=== PATIENT | male | born 1930 | race Hispanic/Latino ===

== ENCOUNTER 2019-05-17 09:59 | Inpatient (IN) | payer MEDICARE ==
[~2019-05-17] VITALS: Ht 175.3 cm; Wt 83.5 kg
[~2019-05-17 09:59] MED LIST: ASPIRIN81 MG PO; CLOPIDOGREL75 MG PO; ISOSORBIDE MONO30 MG PO; METOPROLOL SUCC25 MG PO; SODIUM BICARBO650 MG PO
[2019-05-17] MEDS ORDERED: SODIUM CHLORIDE 0.9% 1000ML 1,000 ML IV STA (12:01)
[2019-05-17] MEDS ORDERED: MORPHINE SULFATE INJ 4 MG/ML INJ 1ML IV ONE (12:01)
[2019-05-17] MEDS ORDERED: ONDANSETRON HCL INJ 2MG/ML 2ML 2 MG/ML VIAL IV ONE (12:01)
[2019-05-17 12:29] LABS: BILIRUBIN,URINE NEGATIVE (NEGATIVE); CLARITY,URINE CLEAR (CLEAR); COLOR,URINE YELLOW (YELLOW); KETONES,URINE NEGATIVE (NEGATIVE); LEUKOCYTE ESTERASE ,URINE NEGATIVE (NEGATIVE); NITRITE,URINE NEGATIVE (NEGATIVE); PROTEIN,URINE DIPSTICK NEGATIVE (NEGATIVE); URINE UROBILINOGEN 0.2 mg/dL (0.2 - 1)
[2019-05-17 12:31] LABS: BASOPHILS % 0.2 % (0.0-1.0); EOSINOPHILS % 0.1 % (0.0-6.0); HEMATOCRIT 42.5 % (38.2-49.6); HEMOGLOBIN 13.3 g/dL (14.0-18.0); LYMPHOCYTES # (AUTO) 1.8 (1.0-3.2); LYMPHOCYTES % 9.9 % (18.0-39.1); MEAN CORPUSCULAR HEMOGLOBIN 29.3 pg (28-32); MEAN CORPUSCULAR HGB CONC 31.3 g/dL (31-35); MEAN CORPUSCULAR VOLUME 93.6 fL (81-99); MONOCYTES # (AUTO) 1.3 (0.2-0.8); MONOCYTES % 6.9 % (4.4-11.3); NEUTROPHILS # (AUTO) 15.3 (2.1-6.9); NEUTROPHILS % 82.3 % (38.7-80.0); PLATELET COUNT 145 x10e3/uL (140-360); RED BLOOD COUNT 4.54 x10e6/uL (4.3-5.7); RED CELL DISTRIBUTION WIDTH 14.4 % (11.7-14.4)
[2019-05-17 12:34] LABS: INR 1.05; PROTHROMBIN TIME 14.2 seconds (11.9-14.5)
[2019-05-17 12:35] LABS: PARTIAL THROMBOPLASTIN TIME 28.6 seconds (23.8-35.5)
[2019-05-17 12:42] LABS: ALBUMIN 3.7 g/dL (3.5-5.0); ALBUMIN/GLOBULIN RATIO 1.1 (0.8-2.0); ANION GAP 14.3 mmol/L (8-16); CALCIUM 9.4 mg/dL (8.4-10.2); CREATINE KINASE MB 2.6 ng/mL (0-5.0); CREATININE, SERUM 1.84 mg/dL (0.72-1.25); POTASSIUM 5.3 mmol/L (3.5-5.1)
--- NOTE | 2019-05-17 13:10 | Diagnostic Imaging Report ---
EXAMINATION: CHEST SINGLE (PORTABLE) INDICATION: Chest pain COMPARISON: None FINDINGS: LINES/TUBES:Sternotomy wires intact. LUNGS:The lungs are moderately inflated. There is patchy airspace opacity at the lingula which partially obscures the left heart border. PLEURA:No pleural effusion or pneumothorax. MEDIASTINUM:The cardiomediastinal silhouette is mildly enlarged. Postoperative findings of prior CABG. BONES/SOFT TISSUES:Severe degenerative changes of the right glenohumeral joint. Elevation of both right and left humeral heads to just of a chronic rotator cuff injury. ABDOMEN:No free air under the diaphragm. IMPRESSION: Patchy lingular airspace opacity may represent aspiration or pneumonia in the proper clinical setting. Cardiomegaly. RECOMMENDATIONS: Follow-up chest radiograph in 6-8 weeks to assess for resolution. Signed by: Nigel Recinos MD on 05/17/2019 1:06 PM
[2019-05-17 13:31] LABS: BACTERIA,URINE RARE /HPF; EPITHELIAL CELLS,URINE FEW /LPF; RBC,URINE 0-5 /HPF (0-5); WBC,URINE (MAN) 0-5 /HPF (0-5)
[2019-05-17] MEDS: PIPERACILLIN/TAZO 2.25 GM 50 ML IV SCH ×2 (14:00→21:25)
--- OUTSIDE RECORDS SUMMARY | 2019-05-17 14:26 | XMS REPORT ---
Author [facility] Address Unknown Phone Unavailable Care Team Providers Care Kennel Helper Name Role Phone Parker PLASCENCIA Unavailable Unavailable Problems This patient has no known problems. Allergies, Adverse Reactions, Alerts This patient has no known allergies or adverse reactions. Medications This patient has no known medications. Results Test Description Test Time Test Comments Text Results Atomic Results Result Comments CHEST SINGLE (PORTABLE) 2019-05-17 13:04:00 [place] [address] Patient Name: JUAN SUAZO MR #: [id number] : 1930 Age/Sex: 88/M Req #: [id number] Adm Physician: Ordered by: PRAMOD PARIKH PLASTIC DESIGN APPLIER Report #: [id number] Location: ER Room/Bed: Procedure: [id number] DX/CHEST SINGLE (PORTABLE) Exam Date: 05/17/19 Exam Time: 1235 REPORT STATUS: Signed EXAMINATION: CHEST SINGLE (PORTABLE) IN DICATION: Chest pain COMPARISON: None FINDINGS: LINES/TUBES:Sternotomy wires intact. LUNGS:The lungs are moderately inflated. There is patchy airspace opacity at the lingula which partially obscures the left heart border. PLEURA:No pleural effusion or pneumothorax. MEDIASTINUM:The cardiomediastinal silhouette is mildly enlarged. Postoperative findings of prior CABG. BONES/SOFT TISSUES:Severe degenerative changes of the right glenohumeral joint. Elevation of both right and left humeral heads to just of a chronic rotator cuff injury. ABDOMEN:No free air under the diaphragm. IMPRESSION: Patchy lingular airspace opacity may represent aspiration or pneumonia in the proper clinical setting. Cardiomegaly. RECOMMENDATIONS: Follow-up chest radiograph in 6-8 weeks to assess for resolution. Signed by: Gary Chavis MD on 05/17/2019 1:06 PM Dictated By: GARY CHAVIS MD [id number] Transcribed By: JACOB on 05/17/19 130 COPY TO: PRAMOD PARIKH NP
[2019-05-17] MEDS ORDERED: MORPHINE SULFATE INJ 4 MG/ML INJ 1ML IV PRN (14:30)
[2019-05-17] MEDS ORDERED: ONDANSETRON HCL INJ 2MG/ML 2ML 2 MG/ML VIAL IV PRN (14:30)
--- NOTE | 2019-05-17 14:54 | NUR ---
H&P cc: abdominal pain HPI: 88yoM, PCP , developed abdominal pain and vomiting; PMH: CAD s/p CABG 2006, RCC s/p left nephrectomy 2005, HTN, HLD, PSHx: CABG in 2006, left nephrectomy Allergies; see emr FH/SH; ; no cigs meds; see MAR ROS: no f/c/s/HASKINS/cp/sob/back pain/vision changes/skin rash v/s; revd PE tired appearing anicterc ns1s2 mod bs soft nd; epigastrium tender no e/t a&ox3; bolaños skin dry n. affect labs/meds; revd A/P: 88yoM Gallstone pancreattitis SOFIE Hyperkalemia Abnormal liver function PLAN IVF; NPO: Recheck K Sx consult SCD/pepcid dispo: Sami Navarrete MD, PhD.
--- NOTE | 2019-05-17 14:55 | Diagnostic Imaging Report ---
EXAM: Right upper quadrant abdominal ultrasound INDICATION: Right upper quadrant pain COMPARISON: None. TECHNIQUE: Transverse and longitudinal images of the right upper quadrant abdomen were obtained FINDINGS: Liver: Size: 12.6 cm in the right midclavicular line, normal Appearance: Normal echogenicity, smooth contour Mass: No focal masses Gallbladder: Gallstones measure 1.1 cm and 0.7 cm. No gallbladder wall thickening, pericholecystic fluid, or sonographic Contreras's sign. Gallbladder wall measures 3 mm. Bile Ducts: Intrahepatic Ducts: No dilatation Extrahepatic Ducts: Common bile duct measures 3 mm. Pancreas: Visualized portions of the pancreatic head, neck and proximal body are normal. Kidney: The right kidney measures 11.1 cm without evidence of hydronephrosis or stone. Vessels: Aorta: Visualized portions are normal Inferior Vena Cava: Visualized portions are normal Main Portal Vein: 1.0 cm, normal size with hepatopetal flow. Free Fluid: No ascites or pleural effusion IMPRESSION: Cholelithiasis with no sonographic evidence of cholecystitis. Signed by: Nigel Recinos MD on 05/17/2019 2:51 PM
--- NOTE | 2019-05-17 15:18 | NUR ---
Report to CLIFTON Johnson
--- NOTE | 2019-05-17 15:26 | NUR ---
RECEIVED PATIENT FROM ER. PATIENT A/O X3, EVEN RESPIRATIONS ON RA. BOWEL SOUNDS ACTIVE, SKIN INTACT, NO EDEMA. RIGHT AC 18 GAUGE IV WITH NS @ 100 CC/HR. PATIENT AMBULATES INDEPENDENTLY. NO PAIN AT THIS TIME. VS STABLE. PATIENT NPO AT THIS TIME. DR. REEDER CALLED FOR NEW CONSULT. BED LOW,WHEELS LOCKED, SIDE RAILS X2. CALL LIGHT IN REACH WILL CONTINUE TO MONITOR PATIENT.
--- NOTE | 2019-05-17 15:32 | Diagnostic Imaging Report ---
EXAM: CT Abdomen and Pelvis WITHOUT intravenous contrast INDICATION: Abdominal pain COMPARISON: Right upper quadrant ultrasound of the same day. TECHNIQUE: Abdomen and pelvis were scanned utilizing a multidetector helical scanner from the lung base to the pubic symphysis without administration of IV contrast. Coronal and sagittal reformations were obtained. IV CONTRAST: None ORAL CONTRAST: Water COMPLICATIONS: None RADIATION DOSE: Total DLP: 519.8 mGy*cm Dose modulation, iterative reconstruction, and/or weight based adjustment of the mA/kV was utilized to reduce the radiation dose to as low as reasonably achievable. FINDINGS: LOWER THORAX: No focal consolidation. Mild cardiomegaly. Atherosclerotic coronary artery calcifications. HEPATOBILIARY: Scattered calcified granulomas. No other focal liver lesions. Cholelithiasis without CT evidence of cholecystitis. SPLEEN: No splenomegaly. PANCREAS: No focal masses or ductal dilatation. ADRENALS: No adrenal nodules. KIDNEYS/URETERS: The left kidney is absent. No renal calculi or hydronephrosis of the right kidney. PELVIC ORGANS/BLADDER: Prostatomegaly to 5.7 cm. PERITONEUM / RETROPERITONEUM: No free air or fluid. LYMPH NODES: No lymphadenopathy. VESSELS: Heavy diffuse atherosclerotic calcifications of the nonaneurysmal abdominal aorta and major branches. GI TRACT: No abnormal bowel wall thickening. No bowel obstruction. Normal appendix. BONES AND SOFT TISSUES: No acute osseous injury. Diffuse osteopenia. Degenerative changes of the visualized spine. IMPRESSION: Cholelithiasis without CT evidence of cholecystitis. Prostatomegaly. Diffuse atherosclerotic calcifications including of the coronary arteries. Signed by: Nigel Recinos MD on 05/17/2019 3:29 PM
[2019-05-17 15:46] VITALS: BP 105/51
[2019-05-17] MEDS: METRONIDAZOLE 500MG/NS 100ML 100 ML IV SCH ×2 (15:58→21:35)
[2019-05-17] MEDS: SODIUM CHLORIDE 0.9% 1000ML 1,000 ML IV SCH (15:58)
[2019-05-17 16:07] VITALS: BP 105/51
[2019-05-17 16:11] VITALS: BP 105/51
--- NOTE | 2019-05-17 16:19 | NUR ---
NOTIFIED DR. MCCALL REGARDING POTASSIUM 5.3 ORDER TO RECHECK POTASSIUM AT 1800 NEW ORDERS IMPLEMENTED
--- NOTE | 2019-05-17 19:36 | NUR ---
ADDENDUM: H&P cc: abdominal pain HPI: 88yoM, PCP , developed abdominal pain and vomiting; PMH: CAD s/p CABG 2006, RCC s/p left nephrectomy 2005, HTN, HLD, PSHx: CABG in 2006, left nephrectomy Allergies; see emr FH/SH; ; no cigs meds; see MAR ROS: no f/c/s/HASKINS/cp/sob/back pain/vision changes/skin rash v/s; revd PE tired appearing anicterc ns1s2 mod bs soft nd; epigastrium tender no e/t a&ox3; bolaños skin dry n. affect labs/meds; revd A/P: 88yoM Gallstone pancreattitis SOFIE Hyperkalemia Abnormal liver function CAD with hx CABG HTN HLD PLAN IVF; NPO: Recheck K Sx consult SCD/pepcid dispo: Sami Navarrete MD, PhD.
[2019-05-17 19:58] VITALS: BP 111/56
[2019-05-17 20:26] LABS: CREATINE KINASE MB 2.3 ng/mL (0-5.0)
[2019-05-18] VITALS (8 sets, daily range): BP systolic 100–130; BP diastolic 51–60
[2019-05-18] MEDS: SODIUM CHLORIDE 0.9% 1000ML 1,000 ML IV SCH ×3 (00:16→20:16)
[2019-05-18] MEDS: PIPERACILLIN/TAZO 2.25 GM 50 ML IV SCH ×4 (03:05→21:30)
--- NOTE | 2019-05-18 03:15 | Consultation ---
DATE OF CONSULTATION: 05/17/2019 CHIEF COMPLAINT: Abdominal pain. HISTORY OF PRESENT ILLNESS: This patient is an 88-year-old male with 1-day history of pain in epigastric region with nausea. The patient has had milder pain in the past. He denies fever, chills, or diarrhea. PAST MEDICAL HISTORY: Positive for coronary artery disease, hypertension. PAST SURGICAL HISTORY: Positive for coronary artery bypass graft in 2006. SOCIAL HABITS: He denies smoking or alcohol use. ALLERGIES: HE HAS NO DRUG ALLERGIES. REVIEW OF SYSTEMS: No chest pain. No shortness of breath. PHYSICAL EXAMINATION: VITAL SIGNS: Stable, afebrile. GENERAL: He is awake, alert, in [id number] discomfort. HEENT: Sclerae anicteric. NECK: Supple. LUNGS: Clear. HEART: Regular rate and rhythm. ABDOMEN: Soft with some guarding in the epigastrium. No rebound tenderness. EXTREMITIES: Without cyanosis or edema. LAB[place]ATORY DATA: [place] [address], hemoglobin of 13, platelet count 145. Creatinine is 1.8. Lipase is 1780. Amylase is 1110. Bilirubin is 1.3, alkaline phosphatase 151. CT of the abdomen shows gallstones with no gallbladder wall thickening. Pancreas is seen normal. Ultrasound also shows sludge and gallstones with no wall thickening. ASSESSMENT: Gallstone pancreatitis. PLAN: N.p.o., IV hydration. We will follow the patient until pancreatitis improve and laparoscopic cholecystectomy can be done. MD JYOTI Caballero/MODMaggy /[id number]
[2019-05-18] MEDS: METRONIDAZOLE 500MG/NS 100ML 100 ML IV SCH ×4 (03:40→22:00)
[2019-05-18 05:33] LABS: BASOPHILS % 0.4 % (0.0-1.0); EOSINOPHILS # (AUTO) 0.2 (0.0-0.4); EOSINOPHILS % 2.1 % (0.0-6.0); HEMATOCRIT 37.9 % (38.2-49.6); HEMOGLOBIN 11.7 g/dL (14.0-18.0); LYMPHOCYTES # (AUTO) 1.8 (1.0-3.2); LYMPHOCYTES % 18.5 % (18.0-39.1); MEAN CORPUSCULAR HEMOGLOBIN 29.7 pg (28-32); MEAN CORPUSCULAR HGB CONC 30.9 g/dL (31-35); MEAN CORPUSCULAR VOLUME 96.2 fL (81-99); MONOCYTES # (AUTO) 0.8 (0.2-0.8); MONOCYTES % 8.7 % (4.4-11.3); NEUTROPHILS # (AUTO) 6.7 (2.1-6.9); NEUTROPHILS % 69.8 % (38.7-80.0); PLATELET COUNT 111 x10e3/uL (140-360); RED BLOOD COUNT 3.94 x10e6/uL (4.3-5.7); RED CELL DISTRIBUTION WIDTH 14.4 % (11.7-14.4)
[2019-05-18 05:57] LABS: CREATINE KINASE MB 1.1 ng/mL (0-5.0)
--- NOTE | 2019-05-18 06:20 | NUR ---
IM-progress note O/N: no events ROS: no f/c/s/HASKINS/cp/sob/back pain/vision changes/skin rash v/s; revd PE tired appearing anicterc ns1s2 mod bs soft nd; epigastrium tender no e/t a&ox3; bolaños skin dry n. affect labs/meds; revd A/P: 88yoM Gallstone pancreattitis SOFIE Hyperkalemia Abnormal liver function CAD with hx CABG HTN HLD PLAN IVF; NPO: Recheck K Sx consult SCD/pepcid dispo: 05-18 f/u labs; cont care Sami Navarrete MD, PhD.
[2019-05-18 06:21] LABS: ALBUMIN 2.9 g/dL (3.5-5.0); ANION GAP 11.5 mmol/L (8-16); CALCIUM 8.5 mg/dL (8.4-10.2); CREATININE, SERUM 1.82 mg/dL (0.72-1.25); POTASSIUM 4.5 mmol/L (3.5-5.1)
--- NOTE | 2019-05-18 07:01 | NUR ---
BEDSIDE SHIFT REPORT GIVEN TO ONCOMING NURSE.PT RESTING IN BED WITH NO S/S OF DISTRESS.
--- NOTE | 2019-05-18 07:04 | NUR ---
RECEIVED PATIENT RESTING IN BED NO S/S OF DISTRESS. BED LOW, WHEELS LOCKED, SIDE RAILS X2. CALL LIGHT IN REACH WILL CONTINUE TO MONITOR PATIENT.
--- NOTE | 2019-05-18 07:39 | NUR ---
NOTIFIED BY PCT PATIENTS OXYGEN SATURATION 83-85% ON RA. PLACED PATIENT ON 2LNC, PATIENT NOW 100%. NO SIGNS OF DISTRESS. VS STABLE. WILL CONTINUE TO MONITOR PATIENT.
--- NOTE | 2019-05-18 10:06 | Diagnostic Imaging Report ---
EXAMINATION: CHEST SINGLE (PORTABLE) INDICATION: Cough COMPARISON: None FINDINGS: LINES/TUBES:None LUNGS:The lungs are moderately inflated. There is perihilar fullness and indistinctness of the pulmonary vasculature. There is left basilar opacity silhouetting the left magnolia diaphragm. PLEURA:No pleural effusion or pneumothorax. MEDIASTINUM:Cardiomediastinal silhouette is stably enlarged. Postoperative findings of prior CABG. BONES/SOFT TISSUES:Sternotomy wires intact. ABDOMEN:No free air under the diaphragm. IMPRESSION: Cardiomegaly and mild pulmonary edema. Left basilar airspace opacity may represent subsegmental atelectasis however superimposed aspiration or pneumonia could also have this appearance in the proper clinical setting. Signed by: Nigel Recinos MD on 05/18/2019 10:03 AM
[2019-05-19] MEDS: PIPERACILLIN/TAZO 2.25 GM 50 ML IV SCH ×4 (03:30→21:06)
[2019-05-19 04:00] VITALS: BP 155/67
[2019-05-19] MEDS: METRONIDAZOLE 500MG/NS 100ML 100 ML IV SCH ×4 (04:00→21:50)
--- NOTE | 2019-05-19 05:50 | NUR ---
IM-progress note O/N: no events ROS: no f/c/s/HASKINS/cp/sob/back pain/vision changes/skin rash v/s; revd PE tired appearing anicterc ns1s2 mod bs soft nd; epigastrium tender no e/t a&ox3; bolaños skin dry n. affect labs/meds; revd A/P: 88yoM Gallstone pancreatitis SOFIE Hyperkalemia Abnormal liver function CAD with hx CABG HTN HLD PLAN IVF; NPO: Recheck K Sx consult SCD/pepcid dispo: 05-18 f/u labs; cont care 05/19 check labs Sami Navarrete MD, PhD.
[2019-05-19] MEDS: SODIUM CHLORIDE 0.9% 1000ML 1,000 ML IV SCH ×2 (06:16→16:16)
[2019-05-19 06:31] LABS: BASOPHILS % 0.5 % (0.0-1.0); EOSINOPHILS # (AUTO) 0.2 (0.0-0.4); EOSINOPHILS % 2.8 % (0.0-6.0); HEMATOCRIT 36.4 % (38.2-49.6); HEMOGLOBIN 11.5 g/dL (14.0-18.0); LYMPHOCYTES # (AUTO) 1.2 (1.0-3.2); LYMPHOCYTES % 14.5 % (18.0-39.1); MEAN CORPUSCULAR HEMOGLOBIN 29.7 pg (28-32); MEAN CORPUSCULAR HGB CONC 31.6 g/dL (31-35); MEAN CORPUSCULAR VOLUME 94.1 fL (81-99); MONOCYTES # (AUTO) 0.7 (0.2-0.8); MONOCYTES % 8.3 % (4.4-11.3); NEUTROPHILS # (AUTO) 5.8 (2.1-6.9); NEUTROPHILS % 73.5 % (38.7-80.0); PLATELET COUNT 113 x10e3/uL (140-360); RED BLOOD COUNT 3.87 x10e6/uL (4.3-5.7); RED CELL DISTRIBUTION WIDTH 13.8 % (11.7-14.4)
[2019-05-19 06:50] LABS: ANION GAP 11.4 mmol/L (8-16); CALCIUM 8.7 mg/dL (8.4-10.2); CREATININE, SERUM 1.65 mg/dL (0.72-1.25); POTASSIUM 4.4 mmol/L (3.5-5.1)
--- NOTE | 2019-05-19 07:10 | NUR ---
REPORT GIVEN TO ONCOMING NURSE.WALKING ROUNDS MADE.PT RESTING IN BED WITH NO S/S OF DISTRESS.
[2019-05-19 08:55] VITALS: BP 155/67
[2019-05-19 09:13] VITALS: BP 125/60
[2019-05-19 13:31] VITALS: BP 148/67
[2019-05-19 16:46] VITALS: BP 176/74
--- NOTE | 2019-05-19 19:11 | NUR ---
WALKING ROUNDS PERFORMED, RECEIVED PT LAYING SEMI FOWLERS IN BED, RESTING 16 RR/MIN. NO S/SX OF DISTRESS NOTED. PT FAMILY AT BEDSIDE. LEFT PT LAYING SEMI FOWLERS IN BED, BED IN LOW LOCKED POSITION, SIDE RAILS UPX2, CALL LIGHT AND PHONE WITHIN REACH.
[2019-05-19 20:05] VITALS: BP 137/67
[2019-05-20] VITALS (8 sets, daily range): BP systolic 147–189; BP diastolic 67–78
[2019-05-20] MEDS: SODIUM CHLORIDE 0.9% 1000ML 1,000 ML IV SCH ×4 (02:24→21:30)
[2019-05-20] MEDS: PIPERACILLIN/TAZO 2.25 GM 50 ML IV SCH ×4 (02:30→21:30)
[2019-05-20] MEDS: METRONIDAZOLE 500MG/NS 100ML 100 ML IV SCH ×4 (03:00→20:09)
--- NOTE | 2019-05-20 06:13 | NUR ---
IM-progress note O/N: no events ROS: no f/c/s/HASKINS/cp/sob/back pain/vision changes/skin rash v/s; revd PE tired appearing anicterc ns1s2 mod bs soft nd; epigastrium tender no e/t a&ox3; bolaños skin dry n. affect labs/meds; revd A/P: 88yoM Gallstone pancreatitis SOFIE Hyperkalemia Abnormal liver function CAD with hx CABG HTN HLD PLAN IVF; NPO: Recheck K Sx consult SCD/pepcid dispo: 05-18 f/u labs; cont care 05/19 check labs 05/20 ivf Sami Navarrete MD, PhD.
--- NOTE | 2019-05-20 11:45 | NUR ---
Notified Dr. Navarrete about elevated BP 189/78. New orders received.
[2019-05-20] MEDS: HYDRALAZINE HCL 20 MG/ML VIAL IV PRN ×3 (12:05→21:25)
--- NOTE | 2019-05-20 19:08 | NUR ---
WALKING ROUNDS PERFORMED, RECEIVED PT LAYING SEMI FOWLERS IN BED, AAOX3, RR EVEN AND NON-LABORED, ON ROOM AIR. NO S/SX OF DISTRESS NOTED. LEFT PT LAYING SEMI FOWLERS IN BED, BED IN LOW LOCKED POSITION, SIDE RAILS UPX2, CALL LIGHT AND PHONE WITHIN REACH.
[2019-05-21] VITALS (8 sets, daily range): BP systolic 120–168; BP diastolic 55–96
[2019-05-21] MEDS: HYDRALAZINE HCL 20 MG/ML VIAL IV PRN ×4 (00:07→17:48)
[2019-05-21] MEDS: PIPERACILLIN/TAZO 2.25 GM 50 ML IV SCH ×4 (02:30→21:03)
[2019-05-21] MEDS: METRONIDAZOLE 500MG/NS 100ML 100 ML IV SCH ×4 (03:12→21:45)
[2019-05-21] MEDS: SODIUM CHLORIDE 0.9% 1000ML 1,000 ML IV SCH ×3 (06:10→19:35)
--- NOTE | 2019-05-21 12:22 | NUR ---
IM-progress note O/N: no events ROS: no f/c/s/HASKINS/cp/sob/back pain/vision changes/skin rash v/s; revd PE tired appearing anicterc ns1s2 mod bs soft nd; epigastrium tender no e/t a&ox3; bolaños skin dry n. affect labs/meds; revd A/P: 88yoM Gallstone pancreatitis SOFIE Hyperkalemia Abnormal liver function CAD with hx CABG HTN HLD PLAN IVF; NPO: Recheck K Sx consult SCD/pepcid dispo: 05-18 f/u labs; cont care 05/19 check labs 05/20 ivf 05/21 check lipase and renal fn. lipase 222 Sami Navarrete MD, PhD.
[2019-05-21 13:01] LABS: ANION GAP 13.8 mmol/L (8-16); CALCIUM 8.5 mg/dL (8.4-10.2); CREATININE, SERUM 1.34 mg/dL (0.72-1.25); POTASSIUM 3.8 mmol/L (3.5-5.1)
[2019-05-22] VITALS (9 sets, daily range): BP systolic 140–182; BP diastolic 63–76
[2019-05-22] MEDS: SODIUM CHLORIDE 0.9% 1000ML 1,000 ML IV SCH ×4 (01:23→22:15)
[2019-05-22] MEDS: PIPERACILLIN/TAZO 2.25 GM 50 ML IV SCH ×4 (02:34→21:55)
[2019-05-22] MEDS: METRONIDAZOLE 500MG/NS 100ML 100 ML IV SCH ×4 (03:19→20:08)
--- NOTE | 2019-05-22 07:08 | NUR ---
IM-progress note O/N: no events ROS: no f/c/s/HASKINS/cp/sob/back pain/vision changes/skin rash v/s; revd PE tired appearing anicterc ns1s2 mod bs soft nd; epigastrium tender no e/t a&ox3; bolaños skin dry n. affect labs/meds; revd A/P: 88yoM Gallstone pancreatitis SOFIE Hyperkalemia Abnormal liver function CAD with hx CABG HTN HLD PLAN IVF; NPO: Recheck K Sx consult SCD/pepcid dispo: 05-18 f/u labs; cont care 05/19 check labs 05/20 ivf 05/21 check lipase and renal fn. lipase 222 05/22 check labs; cardiology for PreOp eval Sami Navarrete MD, PhD.
[2019-05-22 08:04] LABS: ANION GAP 11.7 mmol/L (8-16); CALCIUM 8.3 mg/dL (8.4-10.2); CREATININE, SERUM 1.28 mg/dL (0.72-1.25); POTASSIUM 3.7 mmol/L (3.5-5.1)
[2019-05-22] MEDS: HYDRALAZINE HCL 20 MG/ML VIAL IV PRN ×2 (12:30→23:50)
--- NOTE | 2019-05-22 16:09 | NUR ---
Nutrition LOS Note RD Recommendation for Physician: - Rec low fat diet as medically appropriate Plan of Care: RD following, monitoring for tolerance and adequacy Nutrition reason for involvement: LOS Primary Diagnose(s): gallstone pancreatitis PMH: CAD s/p CABG 2006, RCC s/p left nephrectomy 2005, HTN, HLD Ht: 69in Wt: 184lb BMI: 27.2kg/m2 IBW: 160lb +/- 10% RD Assessment: (05/22) Chart reviewed. Labs and meds reviewed. 88yo M, who was admitted for gallstone pancreatitis. Lipase has trend down. Per RN, pt has surgery scheduled for tomorrow and will be NPO for midnight. Visited pt in the room. Pt has tolerated full liquid diet for lunch so far. No GI complains reported. + flatus. Pt denied any chewing or swallowing difficulty. Weight has been stable. Pt refused diet education. Will continue to monitor and follow. Current Diet: GI soft Malnutrition Evaluation (05/22/2019) The patient does not meet criteria for a specified degree of malnutrition at this time. Will re-evaluate at follow-up as appropriate. Energy intake: Adequate PO intake reported Weight loss: No weight loss reported Fat loss: no loss identified Muscle loss: no loss identified Supporting Evidence: Fluid accumulation: {no accumulation identified} Functional Status: {no changes} Diet Education Needs Assessment: Diet education indicated, pt refused. Nutrition Care Level: low Signed: Camille Gillespie, MS, RD, LD
--- NOTE | 2019-05-22 20:14 | Consultation ---
DATE OF CONSULTATION: Cardiology Consultation REASON FOR CONSULTATION: Preoperative clearance. HISTORY OF PRESENT ILLNESS: This is an 88-year-old man with a history of coronary artery disease, hypertension, hyperlipidemia, history of coronary artery bypass surgery in 2006, who presented to the emergency department with epigastric and abdominal pain associated with some nausea, jhgg-zj-tfapkbiu intensity, occasionally exacerbated by food intake. He was found to have gallstone pancreatitis. Plan is for cholecystectomy. Regarding cardiac status, he is independent, asymptomatic. Denies any chest pain, shortness of breath, palpitations, or near syncope. He used to follow with and currently follows my colleague, Dr. Alberto. Able to achieve greater than 4 metabolic equivalents. REVIEW OF SYSTEMS: A 12-point review of system was conducted, is negative otherwise stated above in the HPI. PAST MEDICAL HISTORY: As stated above in the HPI. PAST SURGICAL HISTORY: Bypass surgery. FAMILY HISTORY: Noncontributory. SOCIAL HISTORY: No illicit drug, alcohol, or tobacco use. ALLERGIES: NO DRUG ALLERGIES. MEDICATIONS: See medication reconciliation form. PHYSICAL EXAMINATION: VITAL SIGNS: Temperature is 97.2, heart rate 63, respirations are 20, blood pressure is 132/76, and oxygen saturation 96% on room air. GENERAL: Well-appearing, well-built, in no apparent distress. HEAD: Normocephalic, atraumatic. EYES: The extraocular muscles are intact. Conjunctivae are clear. NECK: No JVD. No bruits. CARDIOVASCULAR: Regular rate and rhythm. No murmurs. LUNGS: Clear to auscultation. ABDOMEN: Soft, nontender, and nondistended. EXTREMITIES: No clubbing, cyanosis, or edema. VASCULAR: 2+ pulses. SKIN: Warm, dry, and intact. NEUROLOGIC: No focal deficits noted. LABORATORY DATA: Reviewed. Hemoglobin 11.5. Creatinine is 1.6. Abnormal liver function tests. Troponins negative x2. A 12-lead electrocardiogram pending. IMPRESSION: 1. Perioperative risk assessment. 2. Gallstone pancreatitis. 3. Hypertension. 4. Hyperlipidemia. 5. Coronary artery disease, status post coronary artery bypass graft surgery. RECOMMENDATIONS: A 2D echocardiogram has been ordered and reviewed. This once has been completed, the 12-lead electrocardiogram will be reviewed. There is no evidence of any active cardiac conditions currently. Continue hydralazine IV as needed for blood pressure control. Once he is able to take p.o. intake, can start oral antihypertensives. We will review echocardiogram as stated above. DO LEEANNE Starr/MODL /[id number]
[2019-05-23] VITALS (7 sets, daily range): BP systolic 123–168; BP diastolic 68–83
[2019-05-23] MEDS: METRONIDAZOLE 500MG/NS 100ML 100 ML IV SCH ×4 (02:59→20:14)
[2019-05-23] MEDS: PIPERACILLIN/TAZO 2.25 GM 50 ML IV SCH ×4 (03:52→21:57)
[2019-05-23] MEDS: SODIUM CHLORIDE 0.9% 1000ML 1,000 ML IV SCH ×2 (04:44→16:42)
[2019-05-23] MEDS: HYDRALAZINE HCL 20 MG/ML VIAL IV PRN ×3 (04:52→20:14)
--- NOTE | 2019-05-23 06:57 | NUR ---
REPORT GIVEN TO ONCOMING NURSE.WALKING ROUNDS MADE.PT RESTING IN BED WITH NO S/S OF DISTRESS.
--- NOTE | 2019-05-23 07:24 | NUR ---
IM-progress note O/N: no events ROS: no f/c/s/HASKINS/cp/sob/back pain/vision changes/skin rash v/s; revd PE tired appearing anicterc ns1s2 mod bs soft nd; epigastrium tender no e/t a&ox3; bolaños skin dry n. affect labs/meds; revd A/P: 88yoM Gallstone pancreatitis SOFIE Hyperkalemia Abnormal liver function CAD with hx CABG HTN HLD PLAN IVF; NPO: Recheck K Sx consult SCD/pepcid dispo: 05-18 f/u labs; cont care 05/19 check labs 05/20 ivf 05/21 check lipase and renal fn. lipase 222 05/22 check labs; cardiology for PreOp eval 10-1 Sx pending today Sami Navarrete MD, PhD.
[2019-05-23 07:32] LABS: BASOPHILS % 0.5 % (0.0-1.0); EOSINOPHILS # (AUTO) 0.2 (0.0-0.4); EOSINOPHILS % 2.5 % (0.0-6.0); HEMATOCRIT 41.7 % (38.2-49.6); HEMOGLOBIN 13.3 g/dL (14.0-18.0); LYMPHOCYTES # (AUTO) 1.6 (1.0-3.2); LYMPHOCYTES % 19.2 % (18.0-39.1); MEAN CORPUSCULAR HEMOGLOBIN 30.2 pg (28-32); MEAN CORPUSCULAR HGB CONC 31.9 g/dL (31-35); MEAN CORPUSCULAR VOLUME 94.8 fL (81-99); MONOCYTES # (AUTO) 0.9 (0.2-0.8); MONOCYTES % 10.5 % (4.4-11.3); NEUTROPHILS # (AUTO) 5.6 (2.1-6.9); NEUTROPHILS % 66.6 % (38.7-80.0); PLATELET COUNT 156 x10e3/uL (140-360); RED CELL DISTRIBUTION WIDTH 14.1 % (11.7-14.4)
[2019-05-23 07:49] LABS: ANION GAP 14.4 mmol/L (8-16); CALCIUM 8.4 mg/dL (8.4-10.2); CREATININE, SERUM 1.36 mg/dL (0.72-1.25); POTASSIUM 3.4 mmol/L (3.5-5.1)
[2019-05-23] MEDS ORDERED: BUPIVACAINE 0.25%/EPI 30ML SDV INJ ONE (12:15)
[2019-05-23] MEDS ORDERED: HYDROCODONE/APAP 7.5MG-325MG 1 EA TAB PO PRN (14:15)
[2019-05-23] MEDS ORDERED: MORPHINE SULFATE INJ 10 MG/ML ONE (14:43)
[2019-05-23] MEDS ORDERED: FENTANYL CITRATE/PF 100MCG/2 ML INJ ONE (14:59)
--- NOTE | 2019-05-23 15:39 | NUR ---
PT BACK TO FLOOR AA0X3 FAMILY IS AT BEDSIDE PT IS IN NO S.S OF DISTRESS DENIES PAIN 3 SITES COVERED WITH SMALL BANDAIDS AND LARGE DRESSING ABOUT 4X4 WITH JJ DRAIN SUCTIONED AND SECURED TO GOWN PT IS BACK ON IV ABX TO THE RIGHT FA 20 G SITE IS CLEAN AND DRY WILL CONTINUE TO MONITOR PT CLOSELY SIDE RAILSX2, BED WHEELS LOCKED CALL LIGHT IS WITHIN EASY REACH INSTRUCTED TO CALL FOR ASSISTANCE IF NEEDED
--- NOTE | 2019-05-23 19:00 | NUR ---
RECEIVED PATIENT IN BEDSIDE SHIFT REPORT. PATIENT SLEEPING AT THIS TIME. FAMILY MEMBER AT BEDSIDE. 4 TROCHAR SITES C/D/I, CRISTOBAL DRAIN DRAINING SEROSANGUINEOUS FLUID. NO PAIN REPORTED. NO S&S OF DISTRESS NOTED. R WRIST 20G IV RUNNING NS @ 100 ML/HR, ASYMPTOMATIC, INTACT, AND PATENT. BED LOCKED IN LOWEST POSITION, SIDE RAILS UPX2, CALL LIGHT IN REACH.
--- NOTE | 2019-05-23 21:11 | Operative Report ---
DATE OF PROCEDURE: 05/23/2019 SURGEON: Michael Briones MD PREOPERATIVE DIAGNOSIS: Gallstone pancreatitis. POSTOPERATIVE DIAGNOSES: Gallstone pancreatitis and cholecystitis. OPERATIVE PROCEDURE: Laparoscopic cholecystectomy. ON SITE COORDINATOR: None. ANESTHESIA: General. INDICATION: The patient is an 88-year-old male with history of gallstone pancreatitis. After the pancreatitis has improved, the patient consented for laparoscopic cholecystectomy. Attendant risks discussed. PROCEDURE FINDINGS: Chronic cholecystitis with gallstone. DESCRIPTION OF PROCEDURE: The patient was brought to the OR and intubated. The abdomen was prepped and draped in sterile fashion. Infraumbilical incision was made and a 10-mm port inserted. Insufflation began. Under direct vision, other port site placed in the midepigastric right upper quadrant. Gallbladder distended and covered with adhesions from omentum, which was taken down with cautery. The fundus retracted in cephalad direction. Next, the gallbladder retracted laterally. With blunt and sharp dissection, we isolated cystic artery and cystic duct and noted the junction of the common bile duct before triple clipping the cystic artery and cystic duct and divide them between clips. Gallbladder detached from the liver with cautery and taken out through the umbilical port site. The operative field irrigated. Hemostasis was achieved. All ports removed under direct vision. The fascia closure with #0 Vicryl. Skin was closed with subcuticular stitch. A 19-Canadian Manuel drain placed in the Cook pouch and taken out through the right upper quadrant port site. Michael Briones MD DNL/MODL /[id number]
[2019-05-24 00:25] VITALS: BP 135/62
[2019-05-24] MEDS: METRONIDAZOLE 500MG/NS 100ML 100 ML IV SCH ×4 (02:19→21:12)
[2019-05-24] MEDS: PIPERACILLIN/TAZO 2.25 GM 50 ML IV SCH ×4 (03:26→22:28)
[2019-05-24 04:00] VITALS: BP 135/61
--- NOTE | 2019-05-24 04:30 | NUR ---
ASSISTED PATIENT TO RESTROOM. SLOW, STEADY GAIT NOTED. AT BEDSIDE TO ASSIST WELL. RECONNECTED SCDS AND IV AT 100ML/HR. NO PAIN REPORTED. NO S&S OF DISTRESS NOTED. BED LOCKED IN LOWEST POSITION, SIDE RAILS UPX2, CALL LIGHT IN REACH.
[2019-05-24] MEDS: SODIUM CHLORIDE 0.9% 1000ML 1,000 ML IV SCH ×3 (05:03→18:24)
--- NOTE | 2019-05-24 07:00 | NUR ---
bedside shift received pt in stable condition, ivf infusing to r hand 20g no ss of infiltration noted, denies pain at this time, call light in reach will continue to monitor
--- NOTE | 2019-05-24 09:07 | NUR ---
IM-progress note O/N: no events ROS: no f/c/s/HASKINS/cp/sob/back pain/vision changes/skin rash v/s; revd PE tired appearing anicterc ns1s2 mod bs soft nd; epigastrium tender no e/t a&ox3; bolaños skin dry n. affect labs/meds; revd A/P: 88yoM Gallstone pancreatitis SOFIE Hyperkalemia Abnormal liver function CAD with hx CABG HTN HLD PLAN IVF; NPO: Recheck K Sx consult SCD/pepcid dispo: 05-18 f/u labs; cont care 05/19 check labs 05/20 ivf 05/21 check lipase and renal fn. lipase 222 05/22 check labs; cardiology for PreOp eval 10-1 Sx pending today 10-2 check BMP and lytes. Sami Navarrete MD, PhD.
[2019-05-24 09:31] VITALS: BP 120/63
[2019-05-24 10:08] LABS: ANION GAP 11.7 mmol/L (8-16); CALCIUM 8.2 mg/dL (8.4-10.2); CREATININE, SERUM 1.32 mg/dL (0.72-1.25); POTASSIUM 3.7 mmol/L (3.5-5.1)
[2019-05-24 10:29] LABS: MAGNESIUM 1.5 MG/DL (1.3-2.1); PHOSPHORUS 2.7 MG/DL (2.3-4.7)
--- NOTE | 2019-05-24 11:00 | NUR ---
notified by telemetry, pt hr 150's, pt in bathroom, pt asymptomatic, denies pain, no distress noted, pt ambulated back to bed with assistance, hr down to 103 will continue to monitor
[2019-05-24 12:56] VITALS: BP 126/66
--- NOTE | 2019-05-24 16:00 | NUR ---
notified by telemetry, pt hr 120's, pt just back to bed from bathroom, denies any pain, pt asymptomatic, hr now 87, call light in reach will continue to monitor
[2019-05-24 16:58] VITALS: BP 164/75
--- NOTE | 2019-05-24 18:06 | Progress Note ---
DATE: Cardiology Progress Note SUBJECTIVE: The patient feeling tired, however, denies any chest pain, shortness of breath. Mild abdominal pain at surgical site. OBJECTIVE: VITAL SIGNS: Temperature is 97.4, heart rate 74, respirations are 18, blood pressure is 126/66, and oxygen saturation 93% on room air. GENERAL: Well appearing, well built, no apparent distress. CARDIOVASCULAR: Regular rate and rhythm. LUNGS: Clear to auscultation. ABDOMEN: Soft, nontender, and nondistended. EXTREMITIES: No clubbing, cyanosis, or edema. CARDIOVASCULAR MEDICATIONS: Reviewed. LABORATORY DATA: Reviewed. Creatinine 1.32. IMPRESSION: 1. Gallstone pancreatitis, status post cholecystectomy. 2. Hypertension. 3. Hyperlipidemia. 4. Coronary artery disease. 5. Presence of aortocoronary bypass. 6. Mild systolic congestive heart failure. RECOMMENDATIONS: We will resume Toprol-XL and low-dose lisinopril. Resume aspirin and Plavix once stable from postoperative course and okay with surgery. Resume statin as well. DO LEEANNE Starr/MODL /[id number]
[2019-05-24 21:14] VITALS: BP 124/79
[2019-05-25] VITALS (9 sets, daily range): BP systolic 131–157; BP diastolic 64–83
[2019-05-25] MEDS: SODIUM CHLORIDE 0.9% 1000ML 1,000 ML IV SCH ×3 (02:19→22:19)
[2019-05-25] MEDS: METRONIDAZOLE 500MG/NS 100ML 100 ML IV SCH ×4 (03:00→23:00)
[2019-05-25] MEDS: PIPERACILLIN/TAZO 2.25 GM 50 ML IV SCH ×4 (04:32→21:00)
--- NOTE | 2019-05-25 06:54 | NUR ---
IM-progress note O/N: no events ROS: no f/c/s/HASKINS/cp/sob/back pain/vision changes/skin rash v/s; revd PE tired appearing anicterc ns1s2 mod bs soft nd; epigastrium tender no e/t a&ox3; bolaños skin dry n. affect labs/meds; revd A/P: 88yoM Gallstone pancreatitis SOFIE Hyperkalemia Abnormal liver function CAD with hx CABG HTN HLD PLAN IVF; NPO: Recheck K Sx consult SCD/pepcid dispo: 05-18 f/u labs; cont care 05/19 check labs 05/20 ivf 05/21 check lipase and renal fn. lipase 222 05/22 check labs; cardiology for PreOp eval 10-1 Sx pending today 10-2 check BMP and lytes. 10-3 d/c planning; ambulating well; await bowel fn; d/c once cleared by surgery. Sami Navarrete MD, PhD.
[2019-05-25] MEDS ORDERED: SENNOSIDES8.6 MG PO (07:09)
[2019-05-25] MEDS ORDERED: TYLENOL WITH C1 EACH PO (07:10)
--- NOTE | 2019-05-25 07:32 | NUR ---
Report given to CLIFTON Brar at this time.
[2019-05-25] MEDS: METOPROLOL SUCCINATE 25 MG TAB XL PO SCH (09:21)
--- NOTE | 2019-05-25 11:52 | NUR ---
AMBULATING IN HALLWAY , STEADY GAIT, WITH PCT AT SIDE
--- NOTE | 2019-05-25 18:46 | NUR ---
SPOKE WITH MD REEDER, UPDATED ON PT , STATES WILL COME BY TO DISCHARGE TOMORROW
--- NOTE | 2019-05-25 20:45 | NUR ---
RECEIVED PT IN ON THE CHAIR RESPIRATIONS ARE EVEN AND UNLABORED .RT AC 20 G NS RUNNING AT 100CC/HR .CALL LIGHT WITH IN REACH .CONTINUE TO MONITOR
[2019-05-26] VITALS: BP 167/81
[2019-05-26] MEDS: PIPERACILLIN/TAZO 2.25 GM 50 ML IV SCH ×2 (03:20→08:33)
[2019-05-26 04:00] VITALS: BP 130/73
[2019-05-26] MEDS: METRONIDAZOLE 500MG/NS 100ML 100 ML IV SCH ×2 (05:00→10:47)
[2019-05-26 06:15] VITALS: BP 130/73
--- NOTE | 2019-05-26 07:14 | NUR ---
BEDSIDE REPORT GIVEN TO THE ON COMING NURSE
--- NOTE | 2019-05-26 07:51 | NUR ---
Spoke with Dr. albert at this time. Orders received to discontinue the JJ drain and patient can be discharged. Will let attending physician know.
--- NOTE | 2019-05-26 07:54 | NUR ---
Spoke with Dr. Navarrete. Agrees with Dr. albert. Ok to discharge patient.
[2019-05-26 08:33] VITALS: BP 167/77
[2019-05-26] MEDS: METOPROLOL SUCCINATE 25 MG TAB XL PO SCH (08:33)
[2019-05-26] MEDS: SODIUM CHLORIDE 0.9% 1000ML 1,000 ML IV SCH (08:33)
[2019-05-26 09:01] VITALS: BP 167/77
--- NOTE | 2019-05-26 11:00 | NUR ---
Orders received to leave JJ drain in place and send patient home with instructions for care. Orders received from Dr. Briones. Used welding equipment sales representative to explain to patient and family at bedside. All questions answered and all verbalized understanding.
[2019-05-26 12:00] VITALS: BP 123/65
--- NOTE | 2019-05-26 12:25 | NUR ---
EXPLAINED IMM USING TRANSLATION LINE. PATIENT SIGNED BULGARIAN IMM, COPY GIVEN TO PT, ORG IN CHART
--- NOTE | 2019-05-26 13:57 | Progress Note ---
DATE: Cardiology Progress Note SUBJECTIVE: The patient denies any chest pain or shortness of breath. OBJECTIVE: VITAL SIGNS: Temperature is 98.3, heart rate 65, respirations are 19, blood pressure is 130/73, and oxygen saturation 98%. GENERAL: Well appearing, well built, in no apparent distress. CARDIOVASCULAR: Regular rate and rhythm. LUNGS: Clear to auscultation. ABDOMEN: Soft, nontender, nondistended. EXTREMITIES: No clubbing, cyanosis, or edema. LABORATORY DATA: Reviewed. CARDIOVASCULAR MEDICATIONS: Reviewed. TELEMETRY: Monitoring revealed atrial fibrillation with PVCs. IMPRESSION: 1. Atrial fibrillation. 2. Hypertension. 3. Hyperlipidemia. 4. Coronary artery disease. 5. Chronic systolic congestive heart failure. 6. Gallstone pancreatitis, status post cholecystectomy. RECOMMENDATIONS: Start low-dose lisinopril. Resume Toprol-XL. Start anticoagulation if okay from a surgical standpoint. He will need followup with stress test as an outpatient. DO LEEANNE Starr/ROMEO /[id number]
--- NOTE | 2019-05-26 15:00 | NUR ---
Discharge assessment completed at this time. Window Repairer line used, Marya Quinn [id number] was the brand development manager. Education provided to patient and patient's son. All questions answered. Dressing changes to JJ drain taught. JJ drain emptying taught. Patient and son verbalized understanding. Reminded patient to make follow up appt for Wednesday with Dr. Briones's office to have the drain removed. Both verbalized understanding. Discharge teaching and paperwork completed at 1536.
[2019-05-27] MEDS ORDERED: LISINOPRIL 10 MG TAB PO SCH (09:00)
== END 2019-05-26 14:54 | disposition home or self-care (01) | DRG 418 ==
LOC: ER 09:59 → ERHOLD 14:23 → MED/SURG 15:26
PROVIDERS: ADMIT Internal Medicine; ATTEND Internal Medicine
PROC: 0FT44ZZ Resection of Gallbladder, Percutaneous Endoscopic Approach (ICD-10-PCS; principal; 2019-05-23 12:29)
DX: K85.10 Biliary acute pancreatitis without necrosis or infection (principal); N17.9 Acute kidney failure, unspecified; E87.5 Hyperkalemia; I25.10 Atherosclerotic heart disease of native coronary artery without angina pectoris; I10 Essential (primary) hypertension; Z95.1 Presence of aortocoronary bypass graft; Z90.5 Acquired absence of kidney; E78.5 Hyperlipidemia, unspecified
CPT/HCPCS: 36415; 71045; 74176; 76705; 80048; 80053; 81001; 82150; 82550; 82553; 83690; 83735; 83880; 84100; 84132; 84484; 85025; 85610; 85730; 87086; 88304; 93005; 93306; 99284; J0360; J2270; J2405; J2543; J3010; J7030

== ENCOUNTER 2019-12-27 21:10 | Inpatient (IN) | payer MEDICARE, OTHER ==
[~2019-12-27] VITALS: Ht 165.1 cm; Wt 75.4 kg
[~2019-12-27 21:10] MED LIST changes: +SENNOSIDES8.6 MG PO; +TYLENOL WITH C1 EACH PO
[2019-12-27] MEDS ORDERED: SODIUM CHLORIDE 0.9% 1000ML 1,000 ML IV ONE (22:00)
[2019-12-27] MEDS ORDERED: SODIUM CHLORIDE 0.9% 1000ML 1,000 ML ONE (22:09)
[2019-12-27 22:21] LABS: BASOPHILS # (AUTO) 0.1 (0.0-0.1); BASOPHILS % 0.6 % (0.0-1.0); EOSINOPHILS # (AUTO) 0.9 (0.0-0.4); EOSINOPHILS % 6.5 % (0.0-6.0); HEMATOCRIT 44.1 % (38.2-49.6); HEMOGLOBIN 14.1 g/dL (14.0-18.0); LYMPHOCYTES # (AUTO) 2.3 (1.0-3.2); LYMPHOCYTES % 17.4 % (18.0-39.1); MEAN CORPUSCULAR HEMOGLOBIN 29.2 pg (28-32); MEAN CORPUSCULAR VOLUME 91.3 fL (81-99); MONOCYTES # (AUTO) 1.1 (0.2-0.8); MONOCYTES % 7.9 % (4.4-11.3); NEUTROPHILS # (AUTO) 8.8 (2.1-6.9); NEUTROPHILS % 66.3 % (38.7-80.0); PLATELET COUNT 200 x10e3/uL (140-360); RED BLOOD COUNT 4.83 x10e6/uL (4.3-5.7); RED CELL DISTRIBUTION WIDTH 14.2 % (11.7-14.4)
[2019-12-27 22:32] LABS: INR 1.03; PROTHROMBIN TIME 14.1 seconds (11.9-14.5)
[2019-12-27 22:33] LABS: PARTIAL THROMBOPLASTIN TIME 31.6 seconds (23.8-35.5)
[2019-12-27 22:42] LABS: ALBUMIN 3.6 g/dL (3.5-5.0); ALBUMIN/GLOBULIN RATIO 0.9 (0.8-2.0); ANION GAP 18.6 mmol/L (8-16); CREATININE, SERUM 4.09 mg/dL (0.72-1.25); POTASSIUM 5.6 mmol/L (3.5-5.1)
[2019-12-27 22:46] LABS: CALCIUM 9.7 mg/dL (8.4-10.2)
[2019-12-27 22:49] LABS: CREATINE KINASE MB 16.4 ng/mL (0-5.0)
--- NOTE | 2019-12-27 23:09 | Diagnostic Imaging Report ---
EXAMINATION: CHEST SINGLE (PORTABLE) INDICATION: Weakness COMPARISON: Chest x-ray 05/18/2019 FINDINGS: TUBES and LINES: None. LUNGS: Hyperinflated lungs. Lungs are clear. Prominent central pulmonary vasculature. PLEURA: No pleural effusion or pneumothorax. HEART AND MEDIASTINUM: Cardiac size is mildly enlarged. Surgical changes of coronary artery bypass grafts. BONES AND SOFT TISSUES: Degenerative changes in the spine and shoulders. Soft tissues are unremarkable. Sternotomy wires intact. UPPER ABDOMEN: No free air under the diaphragm. IMPRESSION: Hyperinflated lungs. Mild cardiopulmonary and pulmonary vascular congestion. Signed by: Eduar Pearl DO on 12/27/2019 11:06 PM
[2019-12-27] MEDS: SODIUM CHLORIDE 0.9% 1000ML 1,000 ML IV SCH (23:11)
[2019-12-27] MEDS ORDERED: SODIUM BICARBONATE 8.4% INJ 50 ML SYR IV STA (23:12)
--- NOTE | 2019-12-27 23:33 | NUR ---
16FR FARMER CATHETER INSERTED USING STERILE TECHNIQUE PER MD ORDERS. 50CC CLOUDY TEA COLORED URINE RETURN NOTED. MD INFORMED.
[2019-12-28] VITALS (12 sets, daily range): BP systolic 96–142; BP diastolic 45–63
[2019-12-28 00:02] LABS: BILIRUBIN,URINE NEGATIVE (NEGATIVE); CLARITY,URINE CLOUDY (CLEAR); COLOR,URINE AMBER (YELLOW); KETONES,URINE NEGATIVE (NEGATIVE); LEUKOCYTE ESTERASE ,URINE TRACE (NEGATIVE); NITRITE,URINE NEGATIVE (NEGATIVE); PROTEIN,URINE DIPSTICK 2+ (NEGATIVE); URINE UROBILINOGEN 0.2 mg/dL (0.2 - 1)
[2019-12-28] MEDS ORDERED: ONDANSETRON HCL INJ 2MG/ML 2ML 2 MG/ML VIAL IV PRN (00:30)
[2019-12-28 00:41] LABS: BACTERIA,URINE MANY /HPF; EPITHELIAL CELLS,URINE FEW /LPF; RBC,URINE >50 /HPF (0-5)
[2019-12-28] MEDS: SODIUM CHLORIDE 0.9% 1000ML 1,000 ML IV SCH ×4 (02:30→20:42)
--- NOTE | 2019-12-28 05:52 | NUR ---
H&P cc: dehydration HPI: 89yoM, PCP none, developed dehydration, found to have SOFIE and hyperkalemia. Pt states that she has had diarrhea for 3 days. PMH: CAD s/p CABG 2006, RCC s/p left nephrectomy 2005, Hypertensive heart ds, HLD, gallstone pancreatitis, PAF PSHx: CABG in 2006, left nephrectomy Allergies; see emr FH/SH; ; no cigs meds; see MAR ROS: no f/c/s/HASKINS/cp/sob/back pain/vision changes/skin rash v/s; revd PE Dry mucus membranes tired appearing anicterc ns1s2 mod bs soft nd;nt no e/t a&ox3; bolaños skin dry n. affect labs/meds; revd A/P: 88yoM Diarrhea, Presumed Bacterial- flagyl SOFIE- IVF; renal U/S. HYponatremia- rehydrate UTI- IV ceftriaxone; check culture CAD with hx CABG- plavix; BB; asa PAF- on BB Hypertensive heart ds- cont bb/nitrate HLD- Physical deconditioning- PT Prop: scd Dispo: Sami Navarrete MD, PhD.
[2019-12-28] MEDS ORDERED: ACETAMINOPHEN 325 MG TAB PO PRN (06:00)
[2019-12-28] MEDS ORDERED: DOCUSATE SODIUM 100 MG CAP PO PRN (06:00)
[2019-12-28] MEDS ORDERED: ZOLPIDEM TARTRATE 5 MG TAB PO PRN (06:00)
[2019-12-28] MEDS: CEFTRIAXONE SOD 1 GM/NS 50 ML 50 ML IV SCH (06:23)
[2019-12-28 06:50] LABS: BASOPHILS # (AUTO) 0.1 (0.0-0.1); BASOPHILS % 0.6 % (0.0-1.0); HEMATOCRIT 36.7 % (38.2-49.6); LYMPHOCYTES # (AUTO) 1.6 (1.0-3.2); LYMPHOCYTES % 15.6 % (18.0-39.1); MEAN CORPUSCULAR HEMOGLOBIN 29.8 pg (28-32); MEAN CORPUSCULAR HGB CONC 32.7 g/dL (31-35); MEAN CORPUSCULAR VOLUME 91.1 fL (81-99); MONOCYTES # (AUTO) 0.9 (0.2-0.8); MONOCYTES % 8.6 % (4.4-11.3); NEUTROPHILS # (AUTO) 6.6 (2.1-6.9); NEUTROPHILS % 64.5 % (38.7-80.0); PLATELET COUNT 155 x10e3/uL (140-360); RED BLOOD COUNT 4.03 x10e6/uL (4.3-5.7); RED CELL DISTRIBUTION WIDTH 14.1 % (11.7-14.4)
--- NOTE | 2019-12-28 07:00 | NUR ---
RECEIVED BEDSIDE SHIFT REPORT FROM CLIFTON AGUILERA. PT DENIES NEEDS AT THIS TIME.
[2019-12-28 07:05] LABS: ANION GAP 13.4 mmol/L (8-16); CALCIUM 8.4 mg/dL (8.4-10.2); CREATININE, SERUM 3.25 mg/dL (0.72-1.25); POTASSIUM 4.4 mmol/L (3.5-5.1)
[2019-12-28] MEDS: ASPIRIN 81 MG CHEW TAB PO SCH (07:45)
[2019-12-28] MEDS: ISOSORBIDE MONONITRATE 30 MG TAB CR PO SCH (07:47)
[2019-12-28] MEDS: CLOPIDOGREL BISULFATE 75 MG TAB PO SCH (07:47)
[2019-12-28] MEDS: METOPROLOL SUCCINATE 25 MG TAB XL PO SCH (07:48)
[2019-12-28] MEDS: SODIUM BICARBONATE 650 MG TAB PO SCH (07:49)
--- NOTE | 2019-12-28 17:30 | Consultation ---
DATE OF CONSULTATION: 12/28/2019 Nephrology Consultation REASON FOR CONSULTATION: Acute kidney injury. HISTORY OF PRESENT ILLNESS: Mr. Hong is an 89-year-old male, who was admitted yesterday in transfer from a hospital in [place] where he was admitted a few days ago with severe diarrhea going on for about a week. During this time, the patient was not able to take much in by mouth. Denies any vomiting during this time. No abdominal or flank pain, dysuria or gross hematuria. Labs upon arrival here showed elevated BUN and creatinine of 31 and 4.09 respectively. Previous serum creatinine in late 2019 was 1.32. The patient is presently comfortable and receiving IV normal saline at 150 mL/h and Hinton bag does show urine. PAST MEDICAL HISTORY: Hypertension, dyslipidemia, probable coronary artery disease based on his medications. FAMILY AND SOCIAL HISTORY: Unable to obtain from patient, who only speaks English. REVIEW OF SYSTEMS: Negative except as noted above in HPI. The patient denies any chest pain or shortness of breath. PHYSICAL EXAMINATION: GENERAL: The patient is comfortable, lying supine in bed. No acute distress. VITAL SIGNS: Blood pressure is 98/45, pulse 67 per minute, afebrile. Maintaining oxygen saturation on room air. SKIN: Somewhat decreased in turgor. No diffuse lesions. HEENT: Normocephalic, atraumatic head. External ocular movements are intact. No icterus. NECK: Supple without jugular venous distention. CHEST: Auscultation reveals bilateral air entry without wheezing or crepitations. CARDIOVASCULAR: Normal S1, S2 without rub or gallop. ABDOMEN: Soft, depressible, nontender. Not distended. EXTREMITIES: Without pitting edema or cyanosis. NEUROLOGICAL: The patient is alert and appears oriented. No obvious focal deficits. LABORATORY DATA: Chest x-ray report noted. Hyperinflated lungs. Labs sodium 135, potassium 4.4, creatinine 3.25, glucose 119, calcium 8.4, BUN 30, albumin 3.6. Urinalysis from a Hinton shows 2+ protein, 3+ blood. Microscopy showed greater than 50 red cells and 10 to 20 white cells with many bacteria. IMPRESSION: 1. Acute kidney injury, likely secondary to dehydration from perfuse diarrhea based on history. Appears to be responding to IV hydration. 2. Chronic kidney disease, stage 3, based on last year's creatinine level. 3. History of hypertension, presently blood pressure is low from dehydration. 4. Urinalysis findings, likely secondary to catheterized specimen. The patient seems to deny any urinary symptoms. RECOMMENDATIONS: 1. Agree with current management. Continue current IV fluid with normal saline between 100 and 150 mL/h. 2. Monitor intake and output closely. 3. Trend daily renal function. 4. Avoid all known nephrotoxic medications, especially aminoglycoside antibiotics, NSAID, and IV iodine contrast as possible. 5. Hold blood pressure medications for now and monitor BP. 6. We will treat urine culture only if symptomatic. We will follow the patient and recommend as needed. Thank you for the opportunity to participate in his care. Carl Hunter MD [facility]/MODL /[id number]
[2019-12-29] VITALS (11 sets, daily range): BP systolic 121–142; BP diastolic 58–77
[2019-12-29] MEDS: CEFTRIAXONE SOD 1 GM/NS 50 ML 50 ML IV SCH (04:44)
[2019-12-29 05:12] LABS: BASOPHILS # (AUTO) 0.1 (0.0-0.1); BASOPHILS % 1.1 % (0.0-1.0); EOSINOPHILS # (AUTO) 1.1 (0.0-0.4); EOSINOPHILS % 11.4 % (0.0-6.0); HEMATOCRIT 38.1 % (38.2-49.6); HEMOGLOBIN 12.1 g/dL (14.0-18.0); LYMPHOCYTES # (AUTO) 1.7 (1.0-3.2); LYMPHOCYTES % 18.4 % (18.0-39.1); MEAN CORPUSCULAR HEMOGLOBIN 29.2 pg (28-32); MEAN CORPUSCULAR HGB CONC 31.8 g/dL (31-35); MONOCYTES # (AUTO) 0.8 (0.2-0.8); NEUTROPHILS # (AUTO) 5.5 (2.1-6.9); NEUTROPHILS % 59.6 % (38.7-80.0); PLATELET COUNT 153 x10e3/uL (140-360); RED BLOOD COUNT 4.14 x10e6/uL (4.3-5.7)
[2019-12-29 05:42] LABS: ALBUMIN 2.9 g/dL (3.5-5.0); ANION GAP 11.2 mmol/L (8-16); CREATININE, SERUM 1.87 mg/dL (0.72-1.25); POTASSIUM 4.2 mmol/L (3.5-5.1)
--- NOTE | 2019-12-29 07:37 | NUR ---
IM- progress note O/N; see below ROS: no f/c/s/HASKINS/cp/sob/back pain/vision changes/skin rash v/s; revd PE Dry mucus membranes tired appearing anicterc ns1s2 mod bs soft nd;nt no e/t a&ox3; bolaños skin dry n. affect labs/meds; revd A/P: 88yoM Diarrhea, Presumed Bacterial- flagyl SOFIE- IVF; renal U/S. HYponatremia- rehydrate UTI- IV ceftriaxone; check culture CAD with hx CABG- plavix; BB; asa PAF- on BB Hypertensive heart ds- cont bb/nitrate HLD- Physical deconditioning- PT Prop: scd Dispo: 5-8 renal fn improving; Sami Navarrete MD, PhD.
[2019-12-29] MEDS: ASPIRIN 81 MG CHEW TAB PO SCH (10:06)
[2019-12-29] MEDS: CLOPIDOGREL BISULFATE 75 MG TAB PO SCH (10:06)
[2019-12-29] MEDS: SODIUM BICARBONATE 650 MG TAB PO SCH (10:08)
[2019-12-29] MEDS: METOPROLOL SUCCINATE 25 MG TAB XL PO SCH (10:12)
[2019-12-29] MEDS: ISOSORBIDE MONONITRATE 30 MG TAB CR PO SCH (10:12)
[2019-12-29] MEDS: SODIUM CHLORIDE 0.9% 1000ML 1,000 ML IV SCH (13:02)
--- NOTE | 2019-12-29 13:03 | Progress Note ---
DATE: 12/29/2019 Nephrology Followup Note SUBJECTIVE: Followup for acute kidney injury secondary to diarrhea related to dehydration. Creatinine today is much improved. The patient only speaks [place]. RN reports ongoing diarrhea but no vomiting. OBJECTIVE: VITAL SIGNS: Blood pressure 140/72, pulse 56 per minute, afebrile. NECK: Supple without jugular venous distention. CHEST: Symmetrical air entry without wheezing. CARDIOVASCULAR: S1, S2. ABDOMEN: Nondistended. EXTREMITIES: Without pitting edema or cyanosis. NEUROLOGICAL: Alert and apparently oriented. LABORATORY DATA: Sodium 138, potassium 4.2, bicarb 22, BUN 22, creatinine 1.87, down from 3.25 yesterday. Calcium normal. Urine culture, no growth. IMPRESSION: 1. Acute kidney injury, secondary to dehydration. Improving nicely with IV fluids. 2. Dehydration secondary to explosive diarrhea. 3. History of hypertension, blood pressure currently controlled. 4. Negative urine culture. No apparent urinary tract infection symptoms. RECOMMENDATION: 1. Continue with IV fluids as long as the patient is having active diarrhea. Encourage oral intake to the extent possible. 2. Monitor blood pressure, and reinstitute home medications as tolerated. 3. We will discontinue oral sodium bicarbonate. If the patient is discharged over the weekend, please give him appointment to see me in the [place] office next week with results of a BMP. MD SE Olguin/ROMEO /[id number]
--- NOTE | 2019-12-29 21:42 | NUR ---
Received pt awake alert sitting in chair at bedside talking with family member on telephone who is outside window. No s/sx of acute distress denies discomfort. Pt assisted to bed per request call light and personal items within reach. Bed in lowest position. IVF infusing no diff. Hinton cath to dd below bladder clear urine noted. Will cont to mon
[2019-12-30] VITALS (8 sets, daily range): BP systolic 134–162; BP diastolic 56–73
[2019-12-30] MEDS: SODIUM CHLORIDE 0.9% 1000ML 1,000 ML IV SCH (02:15)
[2019-12-30] MEDS: CEFTRIAXONE SOD 1 GM/NS 50 ML 50 ML IV SCH (06:04)
--- NOTE | 2019-12-30 09:14 | NUR ---
Notified Dr. Fely Navarrete of patient's episode 7 beats of V- tack made aware patient has beta kristi metoprolol 25mg, PO and Imdur 30 mg PO. I also informed Dr. Navarrete patient does not have a automatic toe laster in plan of care, per Dr. Navarrete, he will come and see patient, received orders to order a BMP.
[2019-12-30] MEDS: CLOPIDOGREL BISULFATE 75 MG TAB PO SCH (09:21)
[2019-12-30] MEDS: ASPIRIN 81 MG CHEW TAB PO SCH (09:21)
[2019-12-30] MEDS: ISOSORBIDE MONONITRATE 30 MG TAB CR PO SCH (09:25)
[2019-12-30] MEDS: METOPROLOL SUCCINATE 25 MG TAB XL PO SCH (09:26)
[2019-12-30 10:46] LABS: ANION GAP 10.2 mmol/L (8-16); CALCIUM 8.5 mg/dL (8.4-10.2); CREATININE, SERUM 1.4 mg/dL (0.72-1.25); POTASSIUM 4.2 mmol/L (3.5-5.1)
--- NOTE | 2019-12-30 11:05 | NUR ---
Discontinuing PT services since patient is Mod I in functional mobility, will need a RW upon discharge to home. Thank you Addendum: 12/30/19 at 1107 by Conor verde PT Amended: Links added.
--- NOTE | 2019-12-30 11:18 | NUR ---
IM- progress note O/N; see below ROS: no f/c/s/HASKINS/cp/sob/back pain/vision changes/skin rash v/s; revd PE Dry mucus membranes tired appearing anicterc ns1s2 mod bs soft nd;nt no e/t a&ox3; bolaños skin dry n. affect labs/meds; revd A/P: 88yoM Diarrhea, Presumed Bacterial- flagyl SOFIE- IVF; renal U/S. HYponatremia- rehydrate UTI- IV ceftriaxone; check culture CAD with hx CABG- plavix; BB; asa PAF- on BB Hypertensive heart ds- cont bb/nitrate HLD- Physical deconditioning- PT Prop: scd Dispo: 5-8 renal fn improving; 5-9 cont IVF; renal fn improving; Bradycardia- check 12 lead EKG. Sami Navarrete MD, PhD.
--- NOTE | 2019-12-30 15:52 | Progress Note ---
DATE: Renal Progress Note SUBJECTIVE: Followed for acute kidney injury on chronic kidney disease stage 3. The patient continues to have improvement in his kidney function. His creatinine is down to 1.4. Sodium is now 136, potassium 4.2. No nausea, no vomiting, no shortness of breath. OBJECTIVE: VITAL SIGNS: Have been noted and are stable. LUNGS: Clear to auscultation bilaterally. CARDIOVASCULAR: S1, S2. No rub. ABDOMEN: Soft, nontender. EXTREMITIES: No edema. LABORATORY DATA: Creatinine is down to 1.4, potassium is 4.2. IMPRESSION AND PLAN: 1. Acute kidney injury and probable chronic kidney disease stage 3, improved acute kidney injury. Patient's diarrhea subsided on the most part. We will discontinue IV fluids to avoid fluid overload now. 2. Hypertension. Blood pressure is currently stable. Continue to monitor closely. 3. Hyponatremia, has resolved now. Discontinue IV fluids. Pritesh Cannon MD [facility]/MODL /[id number]
--- NOTE | 2019-12-30 22:20 | NUR ---
Recieved pt in bed a/o x 3 able to make needs known to staff. Pt w no c/o at this time no s/sx of distress noted. Bed in low position, call light and personal items within reach. Hinton to dd in place draining no diff. BUE remain with edema noted. Will cont to mon
[2019-12-31] VITALS: BP 154/94
--- NOTE | 2019-12-31 03:53 | NUR ---
Assisted pt up to bathroom with walker. Pt up to sink to brush dentures and wash face. Linens changed on bed. pt refuse shower at this time. Sitting up at bedside eating snack. No s/sx of distress noted. Will cont to mon pt
[2019-12-31 04:00] VITALS: BP 152/64
[2019-12-31] MEDS ORDERED: SODIUM CHLORIDE 0.9% 250ML 250 ML ONE (05:11)
--- NOTE | 2019-12-31 05:20 | NUR ---
IM- progress note O/N; see below ROS: no f/c/s/HASKINS/cp/sob/back pain/vision changes/skin rash v/s; revd PE Dry mucus membranes tired appearing anicterc ns1s2 mod bs soft nd;nt no e/t a&ox3; bolaños skin dry n. affect labs/meds; revd A/P: 88yoM Diarrhea, Presumed Bacterial- flagyl SOFIE- IVF; renal U/S. HYponatremia- rehydrate UTI- IV ceftriaxone; check culture CAD with hx CABG- plavix; BB; asa PAF- on BB Hypertensive heart ds- cont bb/nitrate HLD- Physical deconditioning- PT Prop: scd Dispo: 5-8 renal fn improving; 5-9 cont IVF; renal fn improving; Bradycardia- check 12 lead EKG. 5-10 renal fn improving; check labs; Sami Navarrete MD, PhD.
[2019-12-31] MEDS ORDERED: KEFLEX500 MG PO (05:22)
[2019-12-31 06:16] LABS: ANION GAP 12.1 mmol/L (8-16); CALCIUM 8.2 mg/dL (8.4-10.2); CREATININE, SERUM 1.23 mg/dL (0.72-1.25); POTASSIUM 4.1 mmol/L (3.5-5.1)
[2019-12-31 07:20] VITALS: BP 153/71
[2019-12-31] MEDS: CEFTRIAXONE SOD 1 GM/NS 50 ML 50 ML IV SCH (08:57)
[2019-12-31 09:00] VITALS: BP 153/71
[2019-12-31] MEDS: CLOPIDOGREL BISULFATE 75 MG TAB PO SCH (09:48)
[2019-12-31] MEDS: ASPIRIN 81 MG CHEW TAB PO SCH (09:48)
[2019-12-31] MEDS: ISOSORBIDE MONONITRATE 30 MG TAB CR PO SCH (09:55)
[2019-12-31] MEDS: METOPROLOL SUCCINATE 25 MG TAB XL PO SCH (09:55)
[2019-12-31 11:30] VITALS: BP 154/71
--- NOTE | 2019-12-31 14:01 | NUR ---
D/C summary Principal Dx: Diarrhea, Presumed Bacterial- flagyl SOFIE- IVF; renal U/S. HYponatremia- rehydrate UTI- IV ceftriaxone; check culture Secondary Dx: CAD with hx CABG- plavix; BB; asa PAF- on BB Hypertensive heart ds- cont bb/nitrate HLD- Physical deconditioning- PT Prop: scd Dispo: 5-8 renal fn improving; 5-9 cont IVF; renal fn improving; Bradycardia- check 12 lead EKG. 5-10 renal fn improving; check labs; d/c home f/u pcp 1 week and nephrology 3-7 days stable d/c>35mins Sami Navarrete MD, PhD.
--- NOTE | 2019-12-31 14:25 | Progress Note ---
DATE: 12/31/2019 Renal Progress Note SUBJECTIVE: Followed for acute kidney injury on chronic kidney disease stage 3. The patient's creatinine continues to improve. The patient is now off IV fluids. Diarrhea is slowly subsiding. No nausea, no vomiting, no shortness of breath. OBJECTIVE: VITAL SIGNS: Have been noted and are stable. LUNGS: Clear to auscultation bilaterally. CARDIOVASCULAR: S1, S2. No rub. ABDOMEN: Soft and nontender. EXTREMITIES: No edema. LABORATORY DATA: Potassium is 4.1, creatinine 1.2. IMPRESSION AND PLAN: 1. Acute kidney injury, resolved, off IV fluids now. 2. Hypertension, stable. 3. Chronic kidney disease stage 3, at baseline. Pritesh Cannon MD TH/MODL /[id number]
[2019-12-31 15:43] VITALS: BP 138/75
--- NOTE | 2019-12-31 17:57 | NUR ---
Patient discharged home provided discharge instructions to his daughter and granddaughter, the need for patient to f/u with PCP and Fruit Buying Grader in 1 week, also to obtain a BASIC Metabolic Panel for nephrology. Verbalized understanding. IV acces discontinued prior to discharge.
--- NOTE | 2019-12-31 17:59 | NUR ---
Patient escorted via wheel chair by nursing staff to meet family in front of lobby.
== END 2019-12-31 17:50 | disposition home or self-care (01) | DRG 683 ==
LOC: ER 21:10 → ERHOLD 12-28 00:29 → IMCU 12-28 01:07
PROVIDERS: ADMIT Internal Medicine; ATTEND Internal Medicine
DX: N17.9 Acute kidney failure, unspecified (principal); A09 Infectious gastroenteritis and colitis, unspecified; N39.0 Urinary tract infection, site not specified; E87.1 Hypo-osmolality and hyponatremia; I12.9 Hypertensive chronic kidney disease with stage 1 through stage 4 chronic kidney disease, or unspecified chronic kidney disease; I11.9 Hypertensive heart disease without heart failure; E86.0 Dehydration; I48.0 Paroxysmal atrial fibrillation; Z79.01 Long term (current) use of anticoagulants; I25.10 Atherosclerotic heart disease of native coronary artery without angina pectoris; Z95.1 Presence of aortocoronary bypass graft; Z90.5 Acquired absence of kidney
CPT/HCPCS: 36415; 51700; 71045; 80048; 80053; 81001; 82550; 82553; 83605; 84484; 85025; 85610; 85730; 87086; 87635; 93005; 96361; 97139; 99284; J0696; J7030; J7050